=== PATIENT | male | born 1965 | race Hispanic/Latino ===

== ENCOUNTER → 2024-12-17 | Outpatient (CLI) | payer OTHER ==
[~2024-12-17] MED LIST: IOHEXOL-350 75 ML VIAL IV ONE
--- NOTE | 2024-12-17 11:34 | HMCIMG ---
Exam Type: CT ABDOMEN/PELVIS W/WO CONTRAS Clinical Information: ABNORMAL WEIGHT LOSS Comparison: None Contrast: 100 cc's Isovue 370 IV, no complications or adverse reactions CT Dose Index (CTDI): 31.60 mGy Dose Length Product (DLP): 1740.80 total mGy-cm Findings: No evidence of nephro or ureterolithiasis is found. No hydronephrosis or ureteral dilatation is seen. The lung bases are clear. The stomach is unremarkable. It shows no wall thickening. No gross ulceration is seen. It is not overly distended. There are no surrounding inflammatory changes. No wall lesions are identified to suggest cancer. The spleen is unremarkable. It is not enlarged. The pancreas shows normal anatomy. It is not fatty replaced. It shows no lesions. The pancreatic duct is not dilated. The gallbladder is unremarkable. It shows no cholelithiasis. The gallbladder wall is normal in thickness. There is no pericholecystic fluid. The is no acute or chronic inflammation noted. The adrenal glands are unremarkable. There is no enlargement. No lesions are noted. The liver is unremarkable. It shows no focal masses. The appendix is unremarkable. It shows no evidence of inflammation. No appendicolith is seen. The small bowel is unremarkable. There is no evidence of dilatation to suggest obstruction. No evidence of adynamic ileus is seen. There is no small bowel wall thickening to suggest enteritis. The colon is unremarkable. The urinary bladder is unremarkable. There is no wall thickening to suggest tumor or inflammation. There are no intraluminal calculi. There are no diverticula. There is no evidence of chronic bladder outlet obstruction. There is no evidence of urinary bladder distention to suggest urinary retention. The other pelvic structures are unremarkable. The bony and vascular structures are unremarkable for the patient's age. IMPRESSION: NEGATIVE CT SCAN OF THE ABDOMEN AND PELVIS WITH ORAL AND IV CONTRAST. This study was performed using dose reduction techniques to include automated exposure control and/or adjustment of the mA and/or kV according to patient size.
--- NOTE | 2024-12-17 11:35 | HMCIMG ---
CT NONCONTRAST CHEST Comparison Study: none History: ABNORMAL WEIGHT LOSS Technique: Helical CT of the chest without IV contrast at 5 mm collimation. Coronal and sagittal reformations also done. CT Dose Index (CTDI): 2.38 mGy Dose Length Product (DLP): 94.8 total mGy-cm Findings: The airway is intact. The trachea and major bronchi are unremarkable. The chest exam shows no pulmonary nodules or masses. No significant pulmonary parenchymal abnormalities are noted. No pulmonary infiltrates or mass lesions are seen. No pleural effusions are identified. There is no pneumothorax. There is no evidence of pneumomediastinum. The nonenhanced exam of the mariya and mediastinum is unremarkable. No evidence of hilar enlargement is seen. The aorta shows no aneurysmal dilatation or significant atheromatous calcification. No significant brachiocephalic vascular abnormalities are seen. The heart is unremarkable. It is not enlarged. No significant coronary arterial calcifications are seen. There is no pericardial effusion. The rib cage appears unremarkable. The soft tissues of the chest wall are unremarkable. The dorsal spine shows no significant abnormalities. IMPRESSION: NORMAL CT OF THE CHEST WITHOUT CONTRAST. This study was performed using dose reduction techniques to include automated exposure control and/or adjustment of the mA and/or kV according to patient size.
== END | disposition home or self-care (01) ==
LOC: RAH 09:48
PROVIDERS: ATTEND Clinical Nurse Specialist Family Health
DX: R63.4 Abnormal weight loss (principal); Z68.22 Body mass index [BMI] 22.0-22.9, adult
CPT/HCPCS: 71250; 74178; Q9967

== ENCOUNTER → 2025-04-30 | Outpatient (CLI) | payer OTHER ==
--- NOTE | 2025-04-30 15:22 | HMCIMG ---
EXAM: CT Abdomen and Pelvis with and without IV contrast CLINICAL HISTORY: UNSPECIFIED ABDOMINAL PAIN TECHNIQUE: Axial computed tomography images of the abdomen and pelvis with and without intravenous contrast. CONTRAST: with and without intravenous contrast. COMPARISON: Study dated 12/17/2024. FINDINGS: LUNG BASES: The lung bases appear clear. No pleural effusions are seen. LIVER: Unremarkable. GALLBLADDER AND BILE DUCTS: The gallbladder appears within normal limits. No radioopaque gallstones are seen. No biliary ductal dilatation is evident. PANCREAS: Unremarkable. SPLEEN: Unremarkable. ADRENAL GLANDS: Unremarkable. KIDNEYS, URETERS, AND BLADDER: The kidneys appear within normal limits. There is no hydronephrosis or hydroureter. No urinary calculi are seen. The urinary bladder is partially distended with wall thickness measuring 8.0 mm, likely suggestive of cystitis. STOMACH AND BOWEL: Colonic diverticulosis without diverticulitis. Unremarkable appearance of the stomach and small bowel. No evidence of bowel obstruction. No evidence suggesting enteritis or colitis. APPENDIX: No evidence of acute appendicitis on CT examination. PERITONEUM: No free fluid. No free air. LYMPH NODES: No lymphadenopathy is evident. REPRODUCTIVE: Unremarkable as visualized. VASCULATURE: Mild atherosclerotic changes in the form of eccentric vessel wall calcification in the abdominal aorta and its major branches. No evidence of abdominal aortic aneurysm. BONES: Degenerative changes in the visualized spine in the form of marginal osteophytes and degenerative discs at multiple lumbar levels. Pedicle screw fixation at L4-L5 vertebral levels. No aggressive appearing osseous lesion. No acute osseous pathology is evident. IMPRESSION: 1. No acute intraabdominal or pelvic findings. 2. Thickened urinary bladder wall (8.0 mm), suggesting cystitis. 3. Colonic diverticulosis without diverticulitis. /[place]
== END | disposition home or self-care (01) ==
LOC: RAH 11:11
PROVIDERS: ATTEND Nurse Practitioner Family
DX: K57.30 Diverticulosis of large intestine without perforation or abscess without bleeding (principal); N32.89 Other specified disorders of bladder; I70.0 Atherosclerosis of aorta; M47.816 Spondylosis without myelopathy or radiculopathy, lumbar region; M25.78 Osteophyte, vertebrae; R10.9 Unspecified abdominal pain
CPT/HCPCS: 74178; Q9967

== ENCOUNTER → 2025-04-30 | Outpatient (CLI) | payer OTHER ==
[2025-04-30 10:48] LABS: CREATININE 0.8 mg/dL (0.5-1.3); GLOMERULAR FILTR. RATE CALC 100.0 mL/min (>90); GLUCOSE,RANDOM 91.0 mg/dL (70-105); SODIUM SERUM 141.0 mmol/L (136-145); UREA NITROGEN, BLOOD 7.0 mg/dL (7-18)
[2025-04-30 10:53] LABS: ASPARTATE AMINOTRANSFERASE 16.0 U/L (10-37); TOTAL PROTEIN, SERUM 6.8 g/dL (6.0-8.3)
== END | disposition home or self-care (01) ==
LOC: RAH 10:01
PROVIDERS: ATTEND Internal Medicine
DX: K57.30 Diverticulosis of large intestine without perforation or abscess without bleeding (principal); N32.89 Other specified disorders of bladder; R10.9 Unspecified abdominal pain; I70.0 Atherosclerosis of aorta; M47.816 Spondylosis without myelopathy or radiculopathy, lumbar region; M25.78 Osteophyte, vertebrae
CPT/HCPCS: 74178; 80053; 36415; Q9967

== ENCOUNTER → 2025-05-20 | Outpatient (CLI) | payer OTHER ==
--- NOTE | 2025-05-20 16:54 | HMCIMG ---
EXAM: MR LEFT SHOULDER WITHOUT CONTRAST CLINICAL HISTORY: Pain in left shoulder. TECHNIQUE: Multiplanar multisequence magnetic resonance images were obtained without contrast. CONTRAST: None COMPARISON: None FINDINGS: JOINTS: Moderate AC joint degenerative changes with capsular hypertrophy and encroachment on the supraspinatus. Moderate amount of fluid in the subacromial/subdeltoid bursa. BONE: No acute fracture or focal osseous lesion. SOFT TISSUES: Moderate tendinopathy of the supraspinatus, infraspinatus, subscapularis, and teres minor. High-grade partial-thickness tear of the subscapularis and teres minor. Loss of fibers 50 to 70% full-thickness tear of the supraspinatus with retraction of approximately 1.2 cm. Fluid in the sheath of the biceps tendon consistent with moderate bicipital tendonitis. IMPRESSION: 1. Moderate tendinopathy of the supraspinatus, infraspinatus, subscapularis, and teres minor. 2. High-grade partial-thickness tear of the subscapularis and teres minor. 3. 50-70% full-thickness tear of the supraspinatus with retraction of approximately 1.2 cm. 4. Moderate bicipital tendonitis. 5. Moderate AC joint degenerative changes with capsular hypertrophy and encroachment on the supraspinatus. 6. Moderate amount of fluid in the subacromial/subdeltoid bursa. /[place]
== END | disposition home or self-care (01) ==
LOC: RAH 14:08
PROVIDERS: ATTEND Internal Medicine
DX: M75.122 Complete rotator cuff tear or rupture of left shoulder, not specified as traumatic (principal); M19.012 Primary osteoarthritis, left shoulder; M77.8 Other enthesopathies, not elsewhere classified; M25.512 Pain in left shoulder
CPT/HCPCS: 73221